=== PATIENT | male | born 1995 | race Caucasian/White ===

== ENCOUNTER 2017-09-12 20:31 | Emergency (ER) | payer MEDICAID, SELFPAY ==
[2017-09-12 20:40] VITALS: BP 130/73; PULSE 73; RESP 20; TEMP 36.6; O2SAT 99; BMI 24.4
--- NOTE | 2017-09-12 20:52 | HMH.EDUTC ---
[facility] [place] Disposition Clinical Impression: Sprain of great toe Qualifiers: Encounter type: initial encounter Laterality: right Qualified Code(s): S93.501A - Unspecified sprain of right great toe, initial encounter Disposition: Home, Self-Care Condition on Discharge: Good Instructions: How To Perform RICE (Rest, Ice, Compress, Elevate) Additional Instructions: *RICE, Rest the extremity, Ice 15-20 minutes 3-4 times daily, Compress- wear the luis felipe wrap as discussed as much as possible to help reduce swelling and pain, Elevate the extremity when at rest *Luis Felipe wrap is for support and help control swelling, use it except in the shower. Be sure that is not to tight but not to loose either *Elevate when resting *Ibuprofen every 6-8 hours as needed for pain an inflammation. If need something more can take Tylenol in between doses of Ibuprofen to help Immediately follow up for new or worsening of symptoms, or no noticeable improvement over the next 3-5 days Referrals: Damion Garner MD [Primary Care Provider] - As needed (24-48 hours if no improvement or worsening of symptoms) Time of Disposition: 21:09 Medical Decision Making - Medical Records Medical records reviewed: Yes: I reviewed the patient's medical records. - Frandy Inquiry Pt receiving controlled substance: No Frandy was queried for this patient: No Vital Signs: 09/12/17 20:40 Temperature 97.9 F Temperature Source Oral Pulse Rate [Right Brachial] 73 Respiratory Rate 20 Blood Pressure [Right Arm] 130/73 Blood Pressure Mean [Right Arm] 92 Blood Pressure Source [Right Arm] Automatic Cuff Blood Pressure Position [Right Arm] Sitting 02 Sat by Pulse Oximetry 99 Oxygen Delivery Method Room Air - Lab Data Lab results reviewed: Yes: I reviewed the patient's lab results. Orders (Tests/Meds): ORDERS Category Date Time Status Foot XR right minimum 3 views [XR foot RT min 3V] Stat Exams 09/12/17 20:56 Taken - Radiology Data #1 Image(s): Foot/Toes Image Reviewed: Yes I reviewed the patient's radiology image Preliminary Findings: No Fracture Seen No fracure seen, will have radiologist due official read and if any different findings [facility] [place] HPI - General Stated complaint: AO [id number] R foot injury Time Seen by Provider: 09/12/17 20:40 Mode of Arrival: Family Vehicle Source of Information: Patient Limitations: No Limitations Description of Symptoms (Recalled from Triage Doc. by RN): C/O INJURY TO RIGHT GREAT TOE X3 DAYS AGO HEENT Symptoms (Recalled from RN notes): No Resp Symptoms (Recalled from RN notes): No Skin Symptoms (Recalled from RN notes): No MS Symptoms (Recalled from RN notes): Yes Functional Status (Recalled from RN notes): N/A - History of Present Illness Provider Complaint: Patient states that about 3 days ago he was running and did not have on any shoes and he accidently kicked a speaker that was sitting on the ground States that ever since he has been having pain in his right great toe State that he has been putting ice on it and it has helped with the swelling but still having pain - Related Data Home Medications Medication Instructions Recorded Confirmed No Known Home Medications [No 08/26/17 09/12/17 Known Home Medications] Allergies Allergy/AdvReac Type Severity Reaction Status Date / Time cefaclor [From CECLOR] Allergy Intermediate VOMITING Verified 09/12/17 20:46 AND RASH - Worker's Comp Is this a Worker's Comp case?: No [facility] History I have reviewed the patient's past medical history: Yes Medical History: Denies:: Cancer, Diabetes Mellitus Type 1, Diabetes Mellitus Type 2, MRSA Amputation: No - Social History Smoking Status: Current every day smoker Tobacco Type: cigarettes # Packs/Day (cigarettes): 1 Alcohol Intake: never - Psychiatric History Expresses thoughts of harming self/others: None Suicide Plan Description: No Plan Family Hx:: No significant family history ROS Obtained: Yes All systems
--- NOTE | 2017-09-12 20:56 | XR_ITS ---
XR foot RT min 3V HISTORY: Pain following injury ITS.REASON: KICKED SOMETHING WITH TOE ORDERING PHYSICIAN: Natalia Mancilla PATIENT AGE: 22 years COMPARISON: None FINDINGS: No fracture or dislocation. No lytic or blastic change. There is normal mineralization.. The joint spaces are well-preserved. No significant degenerative/arthritic changes. No erosive changes evident. IMPRESSION: Negative, no acute finding
--- NOTE | 2017-09-12 20:56 | ED_ITS ---
[facility] [place] Clinical Impression: Sprain of great toe Qualifiers: Encounter type: initial encounter Laterality: right Qualified Code(s): S93.501A - Unspecified sprain of right great toe, initial encounter Disposition: Home, Self-Care Condition on Discharge: Good Instructions: How To Perform RICE (Rest, Ice, Compress, Elevate) Additional Instructions: *RICE, Rest the extremity, Ice 15-20 minutes 3-4 times daily, Compress- wear the luis felipe wrap as discussed as much as possible to help reduce swelling and pain, Elevate the extremity when at rest *Luis Felipe wrap is for support and help control swelling, use it except in the shower. Be sure that is not to tight but not to loose either *Elevate when resting *Ibuprofen every 6-8 hours as needed for pain an inflammation. If need something more can take Tylenol in between doses of Ibuprofen to help Immediately follow up for new or worsening of symptoms, or no noticeable improvement over the next 3-5 days Referrals: Damion Garner MD [Primary Care Provider] - As needed (24-48 hours if no improvement or worsening of symptoms) Time of Disposition: 21:09 Medical Decision Making - Medical Records Medical records reviewed: Yes: I reviewed the patient's medical records. - Frandy Inquiry Pt receiving controlled substance: No Frandy was queried for this patient: No Vital Signs: 09/12/17 20:40 Temperature 97.9 F Temperature Source Oral Pulse Rate [Right Brachial] 73 Respiratory Rate 20 Blood Pressure [Right Arm] 130/73 Blood Pressure Mean [Right Arm] 92 Blood Pressure Source [Right Arm] Automatic Cuff Blood Pressure Position [Right Arm] Sitting 02 Sat by Pulse Oximetry 99 Oxygen Delivery Method Room Air - Lab Data Lab results reviewed: Yes: I reviewed the patient's lab results. Orders (Tests/Meds): ORDERS Category Date Time Status Foot XR right minimum 3 views [XR foot RT min 3V] Stat Exams 09/12/17 20:56 Taken - Radiology Data #1 Image(s): Foot/Toes Image Reviewed: Yes I reviewed the patient's radiology image Preliminary Findings: No Fracture Seen No fracure seen, will have radiologist due official read and if any different findings [facility] [place] HPI - General Stated complaint: AO [id number] R foot injury Time Seen by Provider: 09/12/17 20:40 Mode of Arrival: Family Vehicle Source of Information: Patient Limitations: No Limitations Description of Symptoms (Recalled from Triage Doc. by RN): C/O INJURY TO RIGHT GREAT TOE X3 DAYS AGO HEENT Symptoms (Recalled from RN notes): No Resp Symptoms (Recalled from RN notes): No Skin Symptoms (Recalled from RN notes): No MS Symptoms (Recalled from RN notes): Yes Functional Status (Recalled from RN notes): N/A - History of Present Illness Provider Complaint: Patient states that about 3 days ago he was running and did not have on any shoes and he accidently kicked a speaker that was sitting on the ground States that ever since he has been having pain in his right great toe State that he has been putting ice on it and it has helped with the swelling but still having pain - Related Data Home Medications Medication Instructions Recorded Confirmed No Known Home Medications [No 08/26/17 09/12/17 Known Home Medications] Allergies Allergy/AdvReac Type Severity Reaction Status Date / Time cefaclor [From CECLOR] Allergy Intermediate VOMITING Verified
[2017-09-12 21:12] VITALS: BP 128/70; PULSE 70; RESP 20; TEMP 36.6; O2SAT 99
== END 2017-09-12 21:14 | disposition home or self-care (01) ==
PROVIDERS: Emergency Provider Nurse Practitioner; Family Provider Family Medicine; PCP Family Medicine
DX: S93.501A Unspecified sprain of right great toe, initial encounter (principal); W22.8XXA Striking against or struck by other objects, initial encounter; Y92.019 Unspecified place in single-family (private) house as the place of occurrence of the external cause
CPT/HCPCS: 73630; 99201

== ENCOUNTER → 2017-09-17 14:26 | Outpatient (CLI) | payer MEDICAID, SELFPAY ==
[2017-09-17 17:49] LABS: Basophils % 0.1 % (0.1-2.0); Eosinophils % 0.5 % (0.1-12.0); Hematocrit 50.1 % (42.0-52.0); Hemoglobin 16.6 g/dL (14.1-18.0); Lymphocytes % 31.6 K/mm3 (10-50); Mean Corpuscular HGB Conc 33.1 g/dL (31.8-35.4); Mean Corpuscular Hemoglobin 32.8 pg (27.0-31.2); Mean Corpuscular Volume 99.2 fl (80-94); Mean Platelet Volume 7.5 fl (7.4-10.4); Monocytes # 0.3 K/mm3 (0.1-1.0); Monocytes % 4.3 % (1.7-9.3); Neutrophils # 4.1 K/mm3 (1.8-7.8); Neutrophils % 63.5 % (37.0-80.0); Platelet Count 207 K/mm3 (142-424); Red Blood Count 5.05 M/mm3 (4.60-6.20); Red Cell Distribution Width 12.6 % (11.5-17.5); White Blood Count 6.5 K/mm3 (4.8-10.8)
[2017-09-17 18:18] LABS: Hemoglobin A1C 4.9 % (0.0-7.0)
[2017-09-17 18:42] LABS: Alanine Aminotransferase 20 U/L (12-78); Albumin Level 4.3 gm/dL (3.4-5.0); Albumin/Globulin Ratio 1.3 (1.1-1.8); Alkaline Phosphatase 78 U/L (46-116); Anion Gap 11.9 mEq/L (5-15); Aspartate Amino Transferase 14 U/L (15-37); Bilirubin,Total 0.6 mg/dL (0.2-1.0); Blood Urea Nitrogen 11 mg/dL (7-18); Carbon Dioxide 28 mmol/L (21.0-32.0); Chloride 104 mmol/L (98-107); Chol/HDL Ratio 2.7 (1-3.5); Cholesterol 116 mg/dL (140-200); Creatinine,Serum 1.01 mg/dL (0.70-1.30); Estimated Glomerular Filt Rate 92 ml/min (>60); Free T4 (Free Thyroxine) 0.84 ng/dl (0.76-1.46); GFR (African American) 112 ML/MIN (>60); Globulin 3.2 gm/dl (1.3-3.2); Glucose 112 mg/dL (74-106); HDL Cholesterol 43 mg/dL (27-67); LDL Cholesterol 61 mg/dL (0-130); Potassium 3.9 mmoL/L (3.5-5.1); Sodium 140 mmol/L (136-145); Thyroid Stimulating Hormone 0.66 uIU/ml (0.358-3.740); Total Protein,Serum 7.5 gm/dL (6.4-8.2); Triglycerides 62 mg/dL (30-200); VLDL Cholesterol 12 mg/dL (0-40)
[2017-09-19 18:39] LABS: Vitamin D 25 Hydroxy 18.6 ng/mL (30.0-100.0)
== END ==
PROVIDERS: Visit Provider Nurse Practitioner Family
DX: R53.83 Other fatigue (principal); E55.9 Vitamin D deficiency, unspecified; R73.9 Hyperglycemia, unspecified
CPT/HCPCS: 80053; 80061; 82652; 83036; 84439; 84443; 85025

== ENCOUNTER 2020-02-27 13:48 | Emergency (ER) | payer OTHER, SELFPAY ==
[2020-02-27 14:19] VITALS: BP 137/77; PULSE 87; RESP 18; TEMP 37.2; O2SAT 100; BMI 21.6
--- NOTE | 2020-02-27 14:26 | XR_ITS ---
PROCEDURE: XR FOOT RT MIN 3V CLINICAL INDICATION: PAIN COMPARISON: CR FTR3 FOOT-RT-3 VIEWS from 12/24/2016 CR [id number] XR foot RT min 3V from 09/12/2017 CR [id number] XR foot RT min 3V from 09/07/2018 CR Foot R from 09/12/2018 FINDINGS: There is a nondisplaced corner fracture involving the dorsal and proximal aspect of the distal phalanx of the great toe not readily apparent on previous exams. The fracture line however does appear well circumscribed and is age indeterminate. No other significant anomalies are evident. The joint spaces are well-preserved. No significant degenerative/arthritic changes. No erosive changes evident. Other findings:None. IMPRESSION: Nondisplaced avulsion/chip fracture along the dorsal and proximal aspect of the distal phalanx of the great toe age indeterminate Dictated by: Paco Dietz MD 02/28/2020 04:53 Paco Dietz MD in [place] 02/28/2020 04:53
--- NOTE | 2020-02-27 14:29 | HMH.EDUTC ---
[facility] [place] Disposition Clinical Impression: Right foot pain Disposition: Home, Self-Care Condition on Discharge: Good Instructions: DI for Metatarsalgia, DI for Foot Pain Additional Instructions: Rest the extremity, apply ice for 15 minutes as tolerated three or four times per day, Wear the srini wrap for compression, Elevate the extremity as tolerated while you are resting. Take the medications as directed. Follow up with Dr. Townsend. I put in a referral but you need to call her office and schedule an appointment. Follow up with your regular doctor. GO TO THE ER FOR ANY WORSENING SYMPTOMS Prescriptions: Sulfamethoxazole/Trimethoprim [Bactrim DS tablet] 1 each PO BID 7 Days #14 tab Transmission Status: Received by [facility] predniSONE [Prednisone 20mg Tab] 20 mg PO BID 4 Days #8 tab Transmission Status: Received by [facility] Referrals: Damion Garner MD [Primary Care Provider] - Sivan Townsend DPM [Staff Physician] - Forms: Work/School Release Time of Disposition: 14:33 Medical Decision Making - Medical Records Medical records reviewed: No: I reviewed the patient's medical records. - Frandy Inquiry Pt receiving controlled substance: No Vital Signs: 02/27/20 14:19 02/27/20 15:16 Temperature 98.9 F 98.9 F Temperature Source Oral Pulse Rate 87 Pulse Rate [Right Brachial] 87 Respiratory Rate 18 18 Blood Pressure 137/77 Blood Pressure [Right Arm] 137/77 Blood Pressure Mean [Right Arm] 97 Blood Pressure Source [Right Arm] Automatic Cuff Blood Pressure Position [Right Arm] Sitting 02 Sat by Pulse Oximetry 100 Oxygen Delivery Method Room Air Orders (Tests/Meds): ORDERS Category Date Time Status Foot XR right minimum 3 views [XR foot RT min 3V] Stat Exams 02/27/20 14:26 Taken - Radiology Data #1 Image(s): Foot/Toes Image Reviewed: Yes I reviewed the patient's radiology image Preliminary Findings: No Fracture Seen [facility] [place] HPI - General Stated complaint: right foot pain Time Seen by Provider: 02/27/20 14:29 Mode of Arrival: Ambulatory Source of Information: Patient Limitations: No Limitations Description of Symptoms (Recalled from Triage Doc. by RN): PATIENT C/O RIGHT FOOT PAIN X 1 WEEK; SWOLLEN AND HOT TO TOUCH HEENT Symptoms (Recalled from RN notes): No Resp Symptoms (Recalled from RN notes): No Skin Symptoms (Recalled from RN notes): Yes MS Symptoms (Recalled from RN notes): No Functional Status (Recalled from RN notes): WNL - History of Present Illness Provider Complaint: He c/o 2 weeks of right foot pain. The pain is located at the base of his fifth toe and it goes up his foot. He denies any known injury. - Related Data Previous Rx's Medication Instructions Recorded Sulfamethoxazole/Trimethoprim 1 each PO BID 7 Days #14 tab 02/27/20 [Bactrim DS tablet] predniSONE [Prednisone 20mg 20 mg PO BID 4 Days #8 tab 02/27/20 Tab] Allergies Allergy/AdvReac Type Severity Reaction Status Date / Time cefaclor [From CECLOR] Allergy Intermediate VOMITING Verified 11/25/17 09:05 AND RASH - Worker's Comp Is this a Worker's Comp case?: No [facility] History - Hepatitis A Screen Drug use history?: No High risk sexual behaviors?: No History of sexually transmitted infection?: No Currently employed?: No Childcare worker?: No Do you have indoor plumbing?: Yes Do you have electricity?: Yes Attestation statement:: This patient has been screened for Hepatitis A risk factors. I have reviewed the patient's past medical history: Yes Medical History: Denies:: Cancer, Diabetes Mellitus Type 1, Diabetes Mellitus Type 2, Hypertension, MRSA Other Surgeries: Yes: No Previous Surgery, Other (adnoidectomy) Amputation: No Fractures: No Comment: Aednoids removed - Social History Smoking Status: Current every day smoker Tobacco Type: cigarettes # Packs/Day (cigarettes): 1 Alcohol Intake: never Substance Use Type: denies use Occu
[2020-02-27 15:16] VITALS: BP 137/77; PULSE 87; RESP 18; TEMP 37.2; O2SAT 100
== END 2020-02-27 15:20 | disposition home or self-care (01) ==
PROVIDERS: Emergency Provider Nurse Practitioner Family; PCP Family Medicine
DX: M79.671 Pain in right foot (principal)
CPT/HCPCS: 73630; 99201

== ENCOUNTER → 2020-04-17 09:37 | Outpatient (CLI) | payer OTHER, SELFPAY ==
--- NOTE | 2020-04-17 09:41 | XR_ITS ---
PROCEDURE: XR FOOT WT BEARING RT 3V CLINICAL INDICATION: Fracture follow up COMPARISON: CR [id number] XR foot RT min 3V from 09/12/2017 CR [id number] XR foot RT min 3V from 09/07/2018 CR Foot R from 09/12/2018 CR XR FOOT RT MIN 3V from 02/27/2020 FINDINGS: No change in the avulsion fracture along the dorsal and proximal aspect of the distal phalanx of the great toe. No new abnormalities evident. IMPRESSION: No change avulsion fracture of the great toe Dictated by: Paco Dietz MD 04/17/2020 16:50 Paco Dietz MD in [place] 04/17/2020 16:50
== END ==
PROVIDERS: PCP Family Medicine; Visit Provider Nurse Practitioner
DX: T14.8XXA Other injury of unspecified body region, initial encounter (principal); M79.671 Pain in right foot
CPT/HCPCS: 73630

== ENCOUNTER 2020-10-07 20:23 | Emergency (ER) | payer OTHER, SELFPAY ==
[2020-10-07 20:25] VITALS: BP 133/86; PULSE 65; RESP 17; TEMP 37; O2SAT 98; BMI 24.6
--- NOTE | 2020-10-07 20:27 | XR_ITS ---
PROCEDURE: XR WRIST RT MIN 3V CLINICAL INDICATION: SOFTBALL INJURY Posttraumatic pain COMPARISON: No exams were available for comparison FINDINGS: No fracture or dislocation. No lytic or blastic change. There is normal mineralization. The joint spaces are well-preserved. No significant degenerative/arthritic changes. No erosive changes evident. Other findings:None. IMPRESSION: No acute findings. Dictated by: Paco Dietz MD 10/08/2020 05:53 Paco Dietz MD in [place] 10/08/2020 05:53
--- NOTE | 2020-10-07 20:28 | XR_ITS ---
PROCEDURE: XR HAND RT MIN 3V CLINICAL INDICATION: SOFTBALL INJURY Injury with pain COMPARISON: CR HANDL3 HAND-LT-3 VIEWS from 05/10/2016 CR [id number] XR hand RT min 3V from 10/07/2017 FINDINGS: No fracture or dislocation. No lytic or blastic change. There is normal mineralization. The joint spaces are well-preserved. No significant degenerative/arthritic changes. No erosive changes evident. Other findings:None. IMPRESSION: No acute findings. Dictated by: Paco Dietz MD 10/08/2020 05:53 Paco Dietz MD in [place] 10/08/2020 05:53
--- NOTE | 2020-10-07 20:56 | HMH.EDUTC ---
[facility] [place] Clinical Impression: Wrist sprain Qualifiers: Encounter type: initial encounter Laterality: right Qualified Code(s): S63.501A - Unspecified sprain of right wrist, initial encounter Disposition: Home, Self-Care Condition on Discharge: Good Instructions: Wrist Sprain, DI for Wrist Sprain, DI for Contusion, How To Perform RICE (Rest, Ice, Compress, Elevate) Additional Instructions: *RICE, Rest the extremity, Ice 15-20 minutes 3-4 times daily, Compress- wear the luis felipe wrap as discussed as much as possible to help reduce swelling and pain, Elevate the extremity when at rest *Luis Felipe wrap/Velcro wrist splint is for support and help control swelling, use it except in the shower. Be sure that is not to tight but not to loose either *Elevate when resting *Ibuprofen every 6-8 hours as needed for pain an inflammation. If need something more can take Tylenol in between doses of Ibuprofen to help Immediately follow up with your family doctor for new or worsening of symptoms, or no noticeable improvement over the next 3-5 days Call back to the [facility] tomorrow for the official reading of your xray Return if needed Straight to ER if any life threatening symptoms Referrals: Yue Bynum MD [Primary Care Provider] - As needed Time of Disposition: 20:59 Medical Decision Making - Frandy Inquiry Pt receiving controlled substance: No Frandy was queried for this patient: No Vital Signs: 10/07/20 20:25 Temperature 98.6 F Temperature Source Oral Pulse Rate [Right Brachial] 65 Respiratory Rate 17 Blood Pressure [Left Arm] 133/86 Blood Pressure Mean [Left Arm] 101 Blood Pressure Source [Left Arm] Automatic Cuff Blood Pressure Position [Left Arm] Sitting 02 Sat by Pulse Oximetry 98 Oxygen Delivery Method Room Air Orders (Tests/Meds): ORDERS Category Date Time Status XR hand RT min 3V Stat Exams 10/07/20 20:28 Taken XR wrist RT min 3V Stat Exams 10/07/20 20:27 Taken - Radiology Data #1 Image(s): Hand Image Reviewed: Yes I reviewed the patient's radiology image Preliminary Findings: No Fracture Seen #2 Image(s): Wrist Image Reviewed: Yes I reviewed the patient's radiology image Preliminary Findings: No Fracture Seen [facility] [place] HPI - General Stated complaint: [id number] r wrist injury Time Seen by Provider: 10/07/20 20:56 Mode of Arrival: Ambulatory Source of Information: Patient Limitations: No Limitations Description of Symptoms (Recalled from Triage Doc. by RN): PATIENT C/O PAIN TO RIGHT WRIST AND HAND AFTER INJURING IT PLAYING SOFTBALL YESTERDAY HEENT Symptoms (Recalled from RN notes): No Resp Symptoms (Recalled from RN notes): No Skin Symptoms (Recalled from RN notes): No MS Symptoms (Recalled from RN notes): Yes Functional Status (Recalled from RN notes): WNL - History of Present Illness Provider Complaint: Patient states that he was playing softball yesterday when he went to slide into base and his hand/wrist area folded up under him State that he has been having pain when he bends his wrist or moves his finger States that today pain is worse on top of his hand around his ring finger so he came in to get it checked - Related Data Allergies Allergy/AdvReac Type Severity Reaction Status Date / Time cefaclor [From CECLOR] Allergy Intermediate VOMITING Verified 04/17/20 10:06 AND RASH - Worker's Comp Is this a Worker's Comp case?: No [facility] History - Hepatitis A Screen Drug use history?: No High risk sexual behaviors?: No History of sexually transmitted infection?: No Currently employed?: No Childcare worker?: No Do you have indoor plumbing?: Yes Do you have electricity?: Yes Attestation statement:: This patient has been screened for Hepatitis A risk factors. I have reviewed the patient's past medical history: Yes Medical History: Denies:: Cancer, Diabetes Mellitus Type 1, Diabetes Mellitus Type 2, Hypertension, MRSA Laterality Cases: Bilateral: Myringotomy (Ear Tubes), Tonsi
[2020-10-07 21:01] VITALS: BP 131/86; PULSE 65; RESP 17; TEMP 37; O2SAT 98
== END 2020-10-07 21:03 | disposition home or self-care (01) ==
PROVIDERS: Emergency Provider Nurse Practitioner; PCP Family Medicine
DX: S63.501A Unspecified sprain of right wrist, initial encounter (principal); W22.8XXA Striking against or struck by other objects, initial encounter; Y93.64 Activity, baseball; Y92.328 Other athletic field as the place of occurrence of the external cause; F17.210 Nicotine dependence, cigarettes, uncomplicated
CPT/HCPCS: 29125; 73110; 73130; 99202; G0463

== ENCOUNTER → 2021-05-24 20:41 | Outpatient (CLI) | payer OTHER, SELFPAY | PROVIDERS: Visit Provider Nurse Practitioner Family | DX: Z20.822 Contact with and (suspected) exposure to COVID-19 (principal); J02.9 Acute pharyngitis, unspecified | CPT/HCPCS: C9803; U0003; U0005 ==

== ENCOUNTER → 2021-06-01 15:59 | Outpatient (CLI) | payer OTHER, SELFPAY | PROVIDERS: Visit Provider Nurse Practitioner Family | DX: U07.1 COVID-19 (principal) | CPT/HCPCS: C9803; U0003; U0005 ==

== ENCOUNTER 2021-09-18 16:09 | Emergency (ER) | payer OTHER, SELFPAY ==
[2021-09-18 16:49] VITALS: BP 152/63; PULSE 96; RESP 18; TEMP 36.9; O2SAT 97; BMI 25.1
--- NOTE | 2021-09-18 17:17 | HMH.EDUTC ---
[facility] [place] Disposition Clinical Impression: Bronchitis Sinusitis Qualifiers: Sinusitis location: unspecified location Chronicity: acute Recurrence: non-recurrent Qualified Code(s): J01.90 - Acute sinusitis, unspecified Disposition: Home, Self-Care Condition on Discharge: Good Instructions: Acute Bronchitis, DI for Sinusitis, DI for Acute Bronchitis Additional Instructions: Drink plenty of fluids. Take tylenol or ibuprofen for pain or fever. Take the medications as directed. Follow up with your regular doctor. GO TO THE ER FOR ANY WORSENING SYMPTOMS Don't start the oral steroids until tomorrow, since you had the shot here today. The cough syrup medication (promethazine dm) will make you drowsy, so don't drive or operate heavy machinery after taking it. Prescriptions: Promethazine/Dextromethorphan [Promethazine-Dm Syrup] 5 ml PO Q6HP PRN #240 ml PRN Reason: Cough [facility] Benzonatate [Benzonatate 100mg cap] 100 mg PO TIDP PRN #30 cap PRN Reason: Cough [facility] methylPREDNISolone [Medrol] 4 mg PO DIRECTED 6 Days #21 packet Transmission Status: Received by [email or web address] guaiFENesin [Mucinex 600mg tablet] 1 - 2 tab PO BIDP PRN #30 tab PRN Reason: Congestion Transmission Status: [facility] Azithromycin [Z-Omari 250mg Tab*] 250 mg PO UD DOSE PK #6 tab Transmission Status[facility] Referrals: May Chandler APRN [Primary Care Provider] - Forms: Work/School Release Time of Disposition: 17:27 Medical Decision Making - Medical Records Medical records reviewed: No: I reviewed the patient's medical records. - Frandy Inquiry Pt receiving controlled substance: No Vital Signs: 09/18/21 16:49 09/18/21 17:46 Temperature 98.4 F 98.4 F Temperature Source Oral Pulse Rate 96 H Pulse Rate [Left] 96 H Respiratory Rate 18 18 Blood Pressure 152/63 H Blood Pressure [Right Arm] 152/63 H Blood Pressure Mean [Right Arm] 92 02 Sat by Pulse Oximetry 97 - Lab Data Lab results reviewed: Yes: I reviewed the patient's lab results. Orders (Tests/Meds): ED MEDICATIONS Discontinued Medications Generic Name Dose Route Start Last Admin Trade Name Freq PRN Reason Stop Dose Admin Methylprednisolone Sodium Succinate 125 mg 09/18/21 17:22 09/18/21 17:27 Methylprednisolone Sod Succ 125mg Vial IM 09/18/21 17:23 125 mg ONCE ONE Administration [facility] [place] HPI - General Stated complaint: CONGESTION HEAD, Time Seen by Provider: 09/18/21 17:18 Mode of Arrival: Ambulatory Source of Information: Patient Limitations: No Limitations Description of Symptoms (Recalled from Triage Doc. by RN): pt c/o congestion, burning in nose/ears and a MARLEY behind his eyes. ongoing x1mo. HEENT Symptoms (Recalled from RN notes): Yes Resp Symptoms (Recalled from RN notes): No Skin Symptoms (Recalled from RN notes): No MS Symptoms (Recalled from RN notes): No Functional Status (Recalled from RN notes): wnl - History of Present Illness Provider Complaint: He states that he has had a sinus infection for the past 1 month. He has sinus congestion, bilateral ear pain and a cough. - Related Data Previous Rx's Medication Instructions Recorded azithromycin 250 mg tablet 250 mg PO QDAY 5 Days #6 tab 05/24/21 Azithromycin [Z-Omari 250mg Tab*] 250 mg PO UD DOSE PK #6 tab 09/18/21 Benzonatate [Benzonatate 100mg 100 mg PO TIDP PRN #30 cap 09/18/21 cap] Promethazine/Dextromethorphan 5 ml PO Q6HP PRN #240 ml 09/18/21 [Promethazine-Dm Syrup] guaiFENesin [Mucinex 600mg tablet] 1 - 2 tab PO BIDP PRN #30 tab 09/18/21 methylPREDNISolone [Medrol] 4 mg PO DIRECTED 6 Days #21 09/18/21 packet Allergies Allergy/AdvReac Type Severity Reaction Status Date / Time cefaclor [From [facility]] Allergy Intermediate VOMITING Verified 06/01/21 16:09 AND RASH amoxicillin
[2021-09-18 17:46] VITALS: BP 152/63; PULSE 96; RESP 18; TEMP 36.9
== END 2021-09-18 17:47 | disposition home or self-care (01) ==
PROVIDERS: Emergency Provider Nurse Practitioner Family; PCP Nurse Practitioner Family
DX: J20.9 Acute bronchitis, unspecified (principal); J01.90 Acute sinusitis, unspecified; F17.210 Nicotine dependence, cigarettes, uncomplicated
CPT/HCPCS: 96372; 99212; G0463

== ENCOUNTER 2022-06-19 13:04 | Emergency (ER) | payer OTHER, SELFPAY ==
[2022-06-19 13:20] VITALS: PULSE 98; RESP 20; TEMP 36.7; O2SAT 96; BMI 24.7
[2022-06-19 13:45] LABS: UTC Strep Screen (Rapid) Negative (Negative)
[2022-06-19 13:46] LABS: UTC Influenza A Antigen Negative (Negative); UTC Influenza B Antigen Negative (Negative)
--- NOTE | 2022-06-19 13:47 | EXP.UTC ---
Discharge Plan Disposition Patient Disposition: Home, Self-Care Condition: Good Prescriptions Prescriptions: New ondansetron 4 mg tablet,disintegrating 4 mg PO Q8H PRN (Reason: nausea and vomiting) Qty: 10 0RF Referrals Follow up/Referrals: Jono Loza MD [Primary Care Provider] - See instructions Activity Restrictions/Add. Instructions Additional Instructions/Restrictions: *Monitor Temp, Over the counter Motrin or Tylenol as directed/as needed Tylenol every 4 hours and Motrin every 6 hours (as long as your family doctor has told you that you can take it) for fever or pain. and straight to ER if unable to lower temp less than 101.0 after medication given *Warm salt water gargles may help to soothe the throat *Throat Lozenges? *Warm fluids like tea with honey may help to soothe the throat? *Sleep elevated *Humidifier/Vaporizer Drink extra fluids with and between meals. If you have difficulty drinking, try very small amounts of water or suck on ice chips. ? Avoid fruit juices, as these do not replace minerals and can actually increase diarrhea. ? Children and adults can use sports drinks to replenish electrolytes. Younger children and infants should use products formulated for children, like oral rehydration solutions. ? Eat food in small amounts and let your stomach recover. ? Get lots of rest. You may feel tired or weak. ? No greasy or fried foods for the next 24-48 hours BRAT diet Bananas Rice Apples and Brenas ? Make sure to drink plenty of liquids ? Return if needed ? Straight to ER if any life threatening symptoms ? Zofran as prescribed ? Follow up with family doctor in the next 48-72 hours if no improvement or any worsening of symptoms Your throat swab was sent for culture. Those results are typically sent to your primary care. Be sure to follow up in 2-3 days with your family doctor/primary care physician if no improvement so they can review those result and treat if necessary. If you don?t have a primary care doctor, I recommend you get one but in the mean time, you will have to return to a walk in clinic Follow up IMMEDIATELY for new or worsening symptoms or no Noticeable improvement over the next 48-72 hours. 911 for difficulty breathing or swallowing Clinical Impressions Clinical Impression: Viral syndrome Instructions Patient Instructions: Nausea and Vomiting-Adult, Diarrhea, Sore Throat Discharge ED Provider: Natalia Mancilla [facility] [place] HPI General Stated complaint: sore throat, nausea, diarrhea Mode of Arrival: Ambulatory Source of Information: Patient Limitations: No Limitations Time Seen by Provider: 06/19/22 13:47 Description of Symptoms (Recalled from Triage Doc. by RN): PATIENT C/O CONGESTION, HEADACHE, SORE THROAT, NAUSEA AND DIARRHEA SINCE THURSDAY HEENT Symptoms (Recalled from RN notes): Yes Resp Symptoms (Recalled from RN notes): No Skin Symptoms (Recalled from RN notes): No MS Symptoms (Recalled from RN notes): No Functional Status (Recalled from RN notes): WNL History of Present Illness Provider Complaint: Patient states that he started a couple days ago with nasal congestion and scratchy throat States that for the last couple of days he has been having Nausea and diarrhea States that he was worried that he may have flu or strep and wanted to get tested Related Data Previous Rx's Medication Instructions Recorded ondansetron 4 mg disintegrating 4 mg PO Q8H PRN nausea and 06/19/22 tablet vomiting #10 tabs Allergies Allergy/AdvReac Type Severity Reaction Status Date / Time cefaclor [From [facility]] Allergy Intermediate VOMITING Verified 06/01/21 16:09 AND RASH amoxicillin Allergy Verified 06/01/21 16:09 Worker's Comp Is this a Worker's Comp case?: No [facility] Disclaimer: The information contained in this section may have been updated after the patient was seen, as this in
[2022-06-19 13:59] VITALS: BP 0/0; PULSE 98; RESP 20; TEMP 36.7; O2SAT 96
== END 2022-06-19 14:09 | disposition home or self-care (01) ==
PROVIDERS: Emergency Provider Nurse Practitioner; PCP Emergency Medicine
DX: J02.9 Acute pharyngitis, unspecified (principal); R11.0 Nausea; R19.7 Diarrhea, unspecified; B34.9 Viral infection, unspecified
CPT/HCPCS: 87804; 87880; 99212; G0463

== ENCOUNTER 2023-01-04 20:21 | Emergency (ER) | payer OTHER, SELFPAY ==
[2023-01-04 20:27] VITALS: BP 108/80; PULSE 99; RESP 16; TEMP 36.8; O2SAT 98; BMI 24.4
[2023-01-04 20:30] VITALS: BP 94/75; PULSE 97; O2SAT 96
[2023-01-04 21:00] VITALS: BP 112/62; PULSE 112; O2SAT 97
--- NOTE | 2023-01-04 21:02 | XR_ITS ---
PROCEDURE INFORMATION: Exam: XR Left Hand Exam date and time: 01/04/2023 9:21 PM Age: 27 years old Clinical indication: Pain; Hand; Left; Additional info: Left thumb injury TECHNIQUE: Imaging protocol: Radiologic exam of the left hand. Views: 3 or more views. COMPARISON: CR HANDL3 HAND-LT-3 VIEWS 05/10/2016 7:07 PM FINDINGS: Bones/joints: Normal. Soft tissues: Normal. IMPRESSION: No acute findings.
--- NOTE | 2023-01-04 21:02 | HMH.EDGENADL ---
Discharge Plan Disposition Patient Disposition: Home, Self-Care Prescriptions Prescriptions: No Action ondansetron 4 mg tablet,disintegrating 4 mg PO Q8H PRN (Reason: nausea and vomiting) Qty: 10 0RF Referrals Follow up/Referrals: Damion Garner MD [Primary Care Provider] - See instructions Activity Restrictions/Add. Instructions Additional Instructions/Restrictions: Your x-ray did not demonstrate any fractures or dislocations. As discussed you could have a collateral ligament injury and if you have significant worsening of your symptoms I would get a thumb spica splint as discussed which should get on [employer] or [id number]. Please follow-up with orthopedic or sports medicine doctor to get an outpatient MRI for symptoms not improving within 1 to 2 weeks. You may take 800 mg of ibuprofen or 1 g of Tylenol 3 times a day as needed for your symptoms. Clinical Impressions Clinical Impression: Contusion of hand Discharge ED Provider: Sarah Slameron General Adult HPI General Chief complaint: Extremity Injury, Upper Stated complaint: AO 01/04 ball hit LT thumb, pain Time Seen by Provider: 01/04/23 21:00 Mode of Arrival: Ambulatory Source of Information: Patient Limitations: No Limitations Description of Symptoms (Recalled from ER Triage Doc. by RN): pt states he dove for a softball yesterday and it hit his thumb. pt c/o L thumb pain with decreased movement and swelling. History of Present Illness HPI narrative: Patient is a 27-year-old male here with a left thumb injury. States he was playing softball yesterday and was running and ball came and directly hit him on the carpometacarpal joint of the left thumb. States he has significant pain over the radial aspect on the outside of his thumb. Had some paresthesias yesterday which have since resolved. There is a little bit of ecchymosis that has been there since yesterday. Mainly pain at the base of his thumb. No injuries elsewhere. Related Data Previous Rx's Medication Instructions Recorded ondansetron 4 mg disintegrating 4 mg PO Q8H PRN nausea and 06/19/22 tablet vomiting #10 tabs Allergies Allergy/AdvReac Type Severity Reaction Status Date / Time cefaclor [From [facility]] Allergy Intermediate VOMITING Verified 01/04/23 20:42 AND RASH amoxicillin Allergy Verified 01/04/23 20:42 [facility] Disclaimer: The information contained in this section may have been updated after the patient was seen, as this information can be updated by other users. Medical History (Updated 01/04/23 @ 21:03 by Sarah Salmeron MD) Vitamin D deficiency Surgical History (Updated 06/19/22 @ 13:32 by Emy Owens RN) History of tonsillectomy History of tympanostomy tube placement Social History (Updated 06/19/22 @ 13:32 by Emy Owens RN) Smoking Status: Current every day smoker tobacco type: cigarettes packs per day: 1 second hand exposure: Yes alcohol intake: current substance use type: denies use current occupational status: other Travel in the last 8 weeks: None household members: family housing: house ROS Obtained: Yes All systems reviewed & no additional complaints except as documented Physical Exam General General appearance: alert and in no apparent distress Respiratory Respiratory exam: Present normal lung sounds bilaterally; Absent respiratory distress Cardiovascular Cardiovascular exam: Present regular rate; Absent tachycardia Extremities Exam Extremities exam: Present other (Left thumb there is some ecchymosis over the radial aspect at the base of the thumb at the carpometacarpal joint there is some tenderness in this region. No significant collateral ligament laxity.) Neurological Exam Neurological exam: Present alert and oriented X3 Medical Decision Making Frandy Inquiry Pt receiving controlled substance: No Vital Signs: 01/04/23 20:27 01/04/23 20:30 01/04/23 21:00 Temperature 98.2 F Temperat
--- NOTE | 2023-01-04 21:24 | PC.NURSE ---
RAD at BS
[2023-01-04 21:30] VITALS: BP 111/70; PULSE 75; O2SAT 98
[2023-01-04 21:57] VITALS: BP 111/70; PULSE 65; RESP 16; TEMP 36.6
== END 2023-01-04 22:01 | disposition home or self-care (01) ==
PROVIDERS: Emergency Provider Student in an Organized Health Care Education/Training Program; PCP Family Medicine
DX: S60.012A Contusion of left thumb without damage to nail, initial encounter (principal); F17.210 Nicotine dependence, cigarettes, uncomplicated; W21.07XA Struck by softball, initial encounter
CPT/HCPCS: 73130; 99283

== ENCOUNTER 2023-04-05 12:56 | Emergency (ER) | payer OTHER, SELFPAY ==
--- NOTE | 2023-04-05 13:16 | XR_ITS ---
PROCEDURE INFORMATION: Exam: XR Left Ankle Exam date and time: 04/05/2023 1:19 PM Age: 28 years old Clinical indication: Pain; Ankle; Left; Additional info: [place] something pull/pop while playing ball TECHNIQUE: Imaging protocol: Radiologic exam of the left ankle. Views: 3 or more views. COMPARISON: CR XR FOOT LT MIN 3V 04/05/2023 1:17 PM FINDINGS: Bones/joints: No evidence of acute fracture or malalignment. Ankle mortise appears intact. Soft tissues: Unremarkable. IMPRESSION: No evidence of acute osseous abnormality in the left ankle.
--- NOTE | 2023-04-05 13:16 | XR_ITS ---
PROCEDURE INFORMATION: Exam: XR Left Foot Exam date and time: 04/05/2023 1:17 PM Age: 28 years old Clinical indication: Pain; Foot; Left; Additional info: [place] something pull/pop playing ball TECHNIQUE: Imaging protocol: Radiologic exam of the left foot. Views: 3 or more views. COMPARISON: No relevant prior studies available. FINDINGS: Bones/joints: Lisfranc joint appears slightly conspicuous in these non-weightbearing radiographs. Joint alignment in the foot is otherwise unremarkable. No evidence of acute displaced fracture. Lisfranc joint appears normal. Soft tissues: Unremarkable. IMPRESSION: 1. No evidence of acute fracture in the left foot. 2. Lisfranc joint appears slightly conspicuous in these non-weightbearing radiographs. If there is clinical concern for Lisfranc injury, recommend repeat imaging with weight-bearing views.
[2023-04-05 13:45] VITALS: BP 131/88; PULSE 86; RESP 19; TEMP 36.6; O2SAT 98; BMI 24.8
--- NOTE | 2023-04-05 14:11 | EXP.UTC ---
Discharge Plan Disposition Patient Disposition: Home, Self-Care Condition: Good Prescriptions Prescriptions: New ibuprofen 600 mg tablet 600 mg PO Q6HP PRN (Reason: Moderate Pain) Qty: 20 0RF No Action ondansetron 4 mg tablet,disintegrating 4 mg PO Q8H PRN (Reason: nausea and vomiting) Qty: 10 0RF Referrals Follow up/Referrals: Familia Ortega DPM [Physician] - See instructions Luanne Nguyễn APRN [Nurse Practitioner] - See instructions Jono Loza MD [Primary Care Provider] - See instructions Activity Restrictions/Add. Instructions Additional Instructions/Restrictions: Luis Felipe wrap may help with pain and instability Follow up with Podiatry if pain persists Return if needed Follow up with your Family Doctor if no improvement or any worsening of symptoms Clinical Impressions Clinical Impression: Pain in foot Qualifiers: Laterality: left Qualified Code(s): M79.672 - Pain in left foot Instructions Patient Instructions: How To Perform RICE (Rest, Ice, Compress, Elevate), Ibuprofen Discharge ED Provider: Natalia Mancilla [facility] General Stated complaint: left foot pain, no recent accident Mode of Arrival: Ambulatory Source of Information: Patient Limitations: No Limitations Time Seen by Provider: 04/05/23 14:11 Description of Symptoms (Recalled from Triage Doc. by RN): PATIENT C/O LEFT HEEL PAIN SINCE SEPTEMBER. NO KNOWN RECENT INJURY HEENT Symptoms (Recalled from RN notes): No Resp Symptoms (Recalled from RN notes): No Skin Symptoms (Recalled from RN notes): No MS Symptoms (Recalled from RN notes): Yes Functional Status (Recalled from RN notes): WNL History of Present Illness Provider Complaint: Patient states he hurt his heel area in September States that he plays ball on Thursday and after playing he has pain in the back of his heel area around his Achilles Tendon then it will get better and he will play again and the pain is back States that today it was bothering him so he came in to get it checked and try to get a referral to Podiatry Related Data Previous Rx's Medication Instructions Recorded ondansetron 4 mg disintegrating 4 mg PO Q8H PRN nausea and 06/19/22 tablet vomiting #10 tabs ibuprofen 600 mg tablet 600 mg PO Q6HP PRN Moderate Pain 04/05/23 #20 tabs Allergies Allergy/AdvReac Type Severity Reaction Status Date / Time cefaclor [From [facility]] Allergy Intermediate VOMITING Verified 01/04/23 20:42 AND RASH amoxicillin Allergy Verified 01/04/23 20:42 Worker's Comp Is this a Worker's Comp case?: No [facility] Disclaimer: The information contained in this section may have been updated after the patient was seen, as this information can be updated by other users. Medical History (Updated 04/05/23 @ 15:26 by Natalia Mancilla APRN) Vitamin D deficiency Surgical History (Updated 06/19/22 @ 13:32 by Emy Owens RN) History of tonsillectomy History of tympanostomy tube placement Social History (Updated 06/19/22 @ 13:32 by Emy Owens RN) Smoking Status: Current every day smoker tobacco type: cigarettes packs per day: 1 second hand exposure: Yes alcohol intake: current substance use type: denies use current occupational status: other Travel in the last 8 weeks: None household members: family housing: house ROS Obtained: Yes All systems reviewed & no additional complaints except as documented and Yes Systems reviewed as appropriate & no additional complaints except as documented Constitutional Constitutional: Reports system reviewed and no additional complaints, except as documented and Reports as per HPI Cardiovascular Cardiovascular: Reports system reviewed and no additional complaints, except as documented and Reports as per HPI Respiratory Respiratory: Reports system reviewed and no additional complaints, except as documented and Reports as per HPI Gastrointestinal Gastrointestingal: Reports system reviewed and no additional compla
--- NOTE | 2023-04-05 14:46 | XR_ITS ---
PROCEDURE INFORMATION: Exam: XR Left Foot; Alignment Exam date and time: 04/05/2023 2:56 PM Age: 28 years old Clinical indication: Pain; Foot; Left TECHNIQUE: Imaging protocol: Radiologic exam of the left foot. Views: 1 or 2 views. COMPARISON: CR XR FOOT LT MIN 3V 04/05/2023 1:17 PM FINDINGS: Limitations: Off-orthogonal views limit sensitivity of exam. Bones/joints: No evidence of acute fracture. No evidence of Lisfranc joint space widening. Soft tissues: Unremarkable. IMPRESSION: No evidence of Lisfranc joint instability.
[2023-04-05 15:30] VITALS: BP 131/88; PULSE 86; RESP 19; TEMP 36.6; O2SAT 98
== END 2023-04-05 15:34 | disposition home or self-care (01) ==
PROVIDERS: Emergency Provider Nurse Practitioner; PCP Emergency Medicine
DX: M79.672 Pain in left foot (principal); F17.210 Nicotine dependence, cigarettes, uncomplicated; E55.9 Vitamin D deficiency, unspecified
CPT/HCPCS: 73610; 73620; 73630; 99212; 99214; G0463

== ENCOUNTER → 2023-04-30 10:26 | Outpatient (CLI) | payer OTHER, SELFPAY ==
--- NOTE | 2023-04-30 10:27 | MR_ITS ---
FINAL REPORT CLINICAL HISTORY: patient states chronic lateral posterior ankle pain. repeated injuries over time from softball. FINDINGS: Multiplanar and multisequence imaging of the left ankle was obtained without intravenous contrast. BONES/JOINT: Bone marrow signal intensity is normal. There is no edema, contusion or pathologic marrow replacement. The talar dome is unremarkable. LIGAMENTS: The anterior talofibular ligament, posterior talofibular ligament and calcaneofibular ligament are intact. The tibiofibular ligaments are intact. The deltoid and spring ligaments are within normal limits. TENDONS: The Achilles tendon is normal in size and signal intensity. The medial tendons are within normal limits. The peroneus longus and brevis tendons are within normal limits. There is no evidence of peroneus brevis split tear. The extensor tendons are within normal limits. OTHER SOFT TISSUES: There is no joint effusion. Signal intensity within the sinus tarsi is preserved. The plantar fascia is normal in size and signal intensity. There are no additional areas of abnormal signal intensity. There are no masses or abnormal fluid collections. IMPRESSION: No acute abnormality in the left ankle. Reviewed, Interpreted and Dictated by Roberta Yip MD Transcribed by Di Roberts Authenticated and [facility]
--- NOTE | 2023-04-30 10:27 | MR_ITS ---
FINAL REPORT TECHNIQUE: Multi planar MR imaging was performed through the left foot. CLINICAL HISTORY: patient states chronic lateral posterior foot pain. repeated injuries over time from softball. FINDINGS: Bone marrow signal intensity is normal without edema, fracture or pathologic marrow replacement. The Lisfranc joint is intact. The Lisfranc ligament is intact. The flexor and extensor tendons to the toes are intact. The Achilles tendon is intact. The plantar fascia is normal. There is no acute soft tissue abnormality. IMPRESSION: No acute abnormality of the foot. Reviewed, Interpreted and Dictated by Roberta Yip MD Transcribed by Di Roberts Authenticated and [facility]
== END ==
PROVIDERS: PCP Emergency Medicine; Visit Provider Podiatrist
DX: M25.572 Pain in left ankle and joints of left foot (principal); M76.62 Achilles tendinitis, left leg; S99.922A Unspecified injury of left foot, initial encounter; S86.012A Strain of left Achilles tendon, initial encounter; S93.622A Sprain of tarsometatarsal ligament of left foot, initial encounter; M79.671 Pain in right foot
CPT/HCPCS: 73718; 73721

== ENCOUNTER 2023-09-03 21:59 | Emergency (ER) | payer OTHER, SELFPAY ==
--- NOTE | 2023-09-03 22:05 | ED_ITS ---
<Statement entered by Sarah Salmeron MD - 09/03/23 23:00> I was consulted by the SRIKANTH, and we discussed the complexity of the problems being addressed. I approved the treatment and management plan for this patient's care in the emergency department, thus performing a substantive portion of the medical decision making. Sarah Salmeron MD, NATALIE, FACEP Discharge Plan Disposition Chief Complaint: Upper Respiratory Infection Prescriptions Prescriptions: No Action meloxicam 7.5 mg tablet 7.5 mg PO ONCE Qty: 30 2RF methylprednisolone [Medrol (Omari)] 4 mg tablets,dose pack 4 mg PO PER PKG DIR Qty: 21 0RF ibuprofen 600 mg tablet 600 mg PO Q6HP PRN (Reason: Moderate Pain) Qty: 20 0RF Referrals Follow up/Referrals: Peña Castorena DO [Primary Care Provider] - See instructions Discharge ED Provider: Sarah Salmeron General Adult HPI General Chief complaint: Upper Respiratory Infection Stated complaint: no taste or smell, MARLEY, cough,SOA Time Seen by Provider: 09/03/23 22:05 History of Present Illness HPI narrative: Patient presents with a 3-day history of cough that is nonproductive, malaise, and now with headache and fever of 99 at home. Patient denies chest pain chills hemoptysis hematochezia melena nausea vomiting diarrhea sore throat. Related Data Previous Rx's Medication Instructions Recorded ibuprofen 600 mg tablet 600 mg PO Q6HP PRN Moderate Pain 04/05/23 #20 tabs meloxicam 7.5 mg tablet 7.5 mg PO ONCE pain #30 tabs 04/07/23 methylprednisolone 4 mg tablets in 4 mg PO PER PKG DIR #21 tabs 04/07/23 a dose pack (Medrol (Omari)) Allergies Allergy/AdvReac Type Severity Reaction Status Date / Time cefaclor [From [facility]] Allergy Intermediate VOMITING Verified 05/04/23 14:37 AND RASH amoxicillin Allergy Verified 05/04/23 14:37 [facility] Disclaimer: The information contained in this section may have been updated after the patient was seen, as this information can be updated by other users. Medical History Vitamin D deficiency Surgical History History of tonsillectomy History of tympanostomy tube placement Social History Smoking Status: Current every day smoker tobacco type: cigarettes packs per day: 1 second hand exposure: Yes alcohol intake: current substance use type: denies use current occupational status: other Travel in the last 8 weeks: None household members: family housing: house ROS Obtained: Yes Systems reviewed as appropriate & no additional complaints except as documented Physical Exam General General appearance: alert and in no apparent distress Head Head exam: atraumatic, normal inspection and other (No nuchal rigidity or meningeal signs.) Eye Eye exam: Present normal appearance and EOMI ENT ENT exam: Present other (Oropharynx exam shows posterior erythema but no exudate mucous membranes are moist) Neck Neck exam: Present normal inspection, full ROM and trachea midline; Absent tenderness, meningismus or lymphadenopathy Chest Chest inspection: Present normal inspection and symmetric chest wall rise Respiratory Respiratory exam: Present normal lung sounds bilaterally; Absent respiratory distress, wheezes or accessory muscle use Cardiovascular Cardiovascular exam: Present normal rhythm, tachycardia and normal heart sounds Abdominal Exam Abdominal exam: Present soft; Absent tenderness or normal bowel sounds Extremities Exam Extremities exam: Present normal inspection and full ROM Neurological Exam Neurological exam: Present alert, oriented X3 and CN II-XII intact Psychiatric Psychiatric exam: Present normal affect and normal mood Skin Skin exam: Present warm, dry and normal color Medical Decision Making Medical Records Medical records reviewed: Yes I reviewed the patient's medical records. Frandy Inquiry Pt receiving controlled substance: No Vital Signs: 09/03/23 22:07 Temperature 99.4 F Temperature Source Oral Pulse Rate [Left Radial] 108 H Respiratory Rate 20 Blood Pressure [Right Arm] 133/80 Blood Pressure Mean [Right Arm] 97 Blood Pressure Source [Right Arm] Automatic Cuff Blood Pressure Position [Right Arm] Sitting 02 Sat by Pulse Oximetry 97 Oxygen Delivery Method Room Air Lab Data Lab results reviewed: Yes I reviewed the patient's lab results. Orders (Tests/Meds): ED MEDICATIONS Discontinued Medications Generic Name Dose Route Start Last Admin Trade Name Freq PRN Reason Stop Dose Admin Acetaminophen 1,000 mg 09/03/23 22:13 09/03/23 22:18 Acetaminophen 500mg Tab PO 09/03/23 22:14 1,000 mg ONCE ONE Administration Ketorolac Tromethamine 10 mg 09/03/23 22:15 09/03/23 22:25 Ketorolac 10mg Tablet PO 09/08/23 22:14 Not Given Q6H [facility] Ketorolac Tromethamine 30 mg 09/03/23 22:18 09/03/23 22:19 Ketorolac 30mg/Ml Vial IM 09/03/23 22:19 30 mg ONCE ONE Administration ORDERS Category Date Time Status Rapid PCR Covid and Flu A/B Stat Lab 09/03/23 21:05 Received Medical Decision Narrative: In summary patient is a 28-year-old male who presents to the emergency department for evaluation of nonproductive cough fever and headache. Patient is tachycardic but normotensive satting at greater than 94% on room air upon arrival, with a temperature of 99.4. Physical exam is unremarkable and nonfocal including normal breath sounds no lymph nodes no exudate no wheezes, but with some tachycardia but satting then greater than 94% on room air with no increased work of breathing. Differential diagnosis includes COVID flu strep or other viral or bacterial infection. Initial workup will be conducted with flu and COVID swabs. Initial interventions include Tylenol and Toradol. Care will be transitioned over to Dr. Daxa Johnson at 11 PM Critical Care Critical Care Time Critical Care Time: No
[2023-09-03 22:07] VITALS: BP 133/80; PULSE 108; RESP 20; TEMP 37.4; O2SAT 97; BMI 25.1
[2023-09-03] MEDS: ACETAMINOPHEN 500MG TAB 1000 MG PO (22:18)
[2023-09-03] MEDS: KETOROLAC 30MG/ML VIAL 30 MG IM (22:19)
[2023-09-03 22:51] LABS: Coronavirus 19, PCR Not Detected (NotDetected); Influenza A, PCR Not Detected (NotDetected)
[2023-09-03 23:19] LABS: Influenza B, PCR Detected (NotDetected)
[2023-09-03 23:47] VITALS: BP 129/77; PULSE 88; RESP 20; TEMP 36.9
== END 2023-09-03 23:47 | disposition home or self-care (01) ==
PROVIDERS: Physician Assistant; Emergency Provider Student in an Organized Health Care Education/Training Program; PCP Internal Medicine
DX: J10.1 Influenza due to other identified influenza virus with other respiratory manifestations (principal); R06.02 Shortness of breath; R05.9 Cough, unspecified; R53.81 Other malaise; R51.9 Headache, unspecified; F17.210 Nicotine dependence, cigarettes, uncomplicated; R00.0 Tachycardia, unspecified
CPT/HCPCS: 87636; 96372; 99283